=== PATIENT | male | born 1990 | race Caucasian/White ===

== ENCOUNTER 2016-12-05 19:01 | Emergency (ER) | payer OTHER ==
[~2016-12-05] VITALS: Ht 180.3 cm; Wt 115.7 kg
[2016-12-05 19:07] VITALS: BP 148/62
[2016-12-05] MEDS ORDERED: ANAPROX DS550 MG PO (20:05)
== END 2016-12-05 20:29 | disposition home or self-care (01) ==
LOC: ED 19:01
DX: S66.912A Strain of unspecified muscle, fascia and tendon at wrist and hand level, left hand, initial encounter (principal); F17.200 Nicotine dependence, unspecified, uncomplicated; Z88.0 Allergy status to penicillin; X58.XXXA Exposure to other specified factors, initial encounter; Y93.89 Activity, other specified; Y92.89 Other specified places as the place of occurrence of the external cause; Y99.9 Unspecified external cause status

== ENCOUNTER 2020-12-17 22:21 | Emergency (ER) | payer OTHER ==
[~2020-12-17] VITALS: Ht 177.8 cm; Wt 127.0 kg
[2020-12-17 22:21] VITALS: BP 147/81
[~2020-12-17 22:21] MED LIST: ANAPROX DS550 MG PO; Motrin,Rufen800 MG PO; Orphenadrine C100 MG PO
[2020-12-17] MEDS ORDERED: NAPROSYN500 MG PO (23:23)
== END 2020-12-18 00:32 | disposition home or self-care (01) ==
LOC: ED 22:21
DX: M25.532 Pain in left wrist (principal); M79.642 Pain in left hand; Z88.0 Allergy status to penicillin; Z88.8 Allergy status to other drugs, medicaments and biological substances; Z79.899 Other long term (current) drug therapy

== ENCOUNTER 2021-06-14 21:27 | Emergency (ER) | payer OTHER ==
[~2021-06-14 21:27] MED LIST changes: +NAPROSYN500 MG PO
[2021-06-14] MEDS ORDERED: IBUPROFEN600 MG PO (22:38)
[2021-06-14 22:48] VITALS: BP 142/77
== END 2021-06-14 23:25 | disposition home or self-care (01) ==
LOC: ED 21:27
DX: S93.402A Sprain of unspecified ligament of left ankle, initial encounter (principal); M79.672 Pain in left foot; X50.1XXA Overexertion from prolonged static or awkward postures, initial encounter; Y93.89 Activity, other specified; Y92.89 Other specified places as the place of occurrence of the external cause; Y99.8 Other external cause status

== ENCOUNTER 2022-12-02 17:26 | Emergency (ER) | payer OTHER ==
[~2022-12-02] VITALS: Wt 122.5 kg
[~2022-12-02 17:26] MED LIST changes: +IBUPROFEN600 MG PO
[2022-12-02 17:57] VITALS: BP 134/81
[2022-12-02 19:46] LABS: BILIRUBIN Negative (Negative); BLOOD Negative (Negative); CLARITY Clear (Clear); COLOR Yellow (Yellow); GLUCOSE Negative (Negative); KETONE Negative (Negative); LEUKO ESTERASE Negative (Negative); NITRITE Negative (Negative); PH 5.5 (4.5-8.0); SPECIFIC GRAVITY 1.025 (1.001-1.030)
[2022-12-02 20:13] LABS: MUCOUS TRACE
[2022-12-02] MEDS ORDERED: CYCLOBENZAPRINE5 M3 PO (20:48)
[2022-12-02] MEDS ORDERED: KETOROLAC10 MG PO (20:48)
== END 2022-12-02 20:54 | disposition home or self-care (01) ==
LOC: ED 17:26
PROVIDERS: Student in an Organized Health Care Education/Training Program
DX: S39.012A Strain of muscle, fascia and tendon of lower back, initial encounter (principal); Z88.0 Allergy status to penicillin; Z88.8 Allergy status to other drugs, medicaments and biological substances; X58.XXXA Exposure to other specified factors, initial encounter; Y93.89 Activity, other specified; Y92.89 Other specified places as the place of occurrence of the external cause; Y99.8 Other external cause status

== ENCOUNTER 2023-01-15 22:46 | Emergency (ER) | payer OTHER ==
[~2023-01-15 22:46] MED LIST changes: +CYCLOBENZAPRINE5 M3 PO; +KETOROLAC10 MG PO
[2023-01-15 23:17] VITALS: BP 131/89
== END 2023-01-16 00:13 | disposition home or self-care (01) ==
LOC: ED 22:46
DX: S61.211A Laceration without foreign body of left index finger without damage to nail, initial encounter (principal); Z88.0 Allergy status to penicillin; Z88.8 Allergy status to other drugs, medicaments and biological substances; W23.0XXA Caught, crushed, jammed, or pinched between moving objects, initial encounter; Y93.89 Activity, other specified; Y92.89 Other specified places as the place of occurrence of the external cause; Y99.8 Other external cause status

== ENCOUNTER 2024-09-01 10:38 | Emergency (ER) | payer SELFPAY ==
[~2024-09-01] VITALS: Ht 180.3 cm; Wt 127.0 kg
[2024-09-01 10:48] VITALS: BP 155/89
[2024-09-01] MEDS ORDERED: PREDNISONE50 MG PO (11:17)
[2024-09-01] MEDS ORDERED: methylPREDNISolone sod succ 125 MG VIAL IM ONE (11:20)
== END 2024-09-01 12:23 | disposition home or self-care (01) ==
LOC: ED 10:38
DX: S46.911A Strain of unspecified muscle, fascia and tendon at shoulder and upper arm level, right arm, initial encounter (principal); Z88.0 Allergy status to penicillin; Z88.8 Allergy status to other drugs, medicaments and biological substances; X58.XXXA Exposure to other specified factors, initial encounter; Y93.89 Activity, other specified; Y92.89 Other specified places as the place of occurrence of the external cause; Y99.0 Civilian activity done for income or pay